=== PATIENT | male | born 1945 | race African-American/Black ===

== ENCOUNTER 2018-05-12 11:35 | Emergency (ER) | payer MEDICARE ==
[~2018-05-12] VITALS: Ht 180.3 cm; Wt 110.0 kg
[2018-05-12 12:00] VITALS: BP 144/95
== END 2018-05-12 12:16 | disposition left against medical advice (07) ==
LOC: ER 11:35
DX: Z53.21 Procedure and treatment not carried out due to patient leaving prior to being seen by health care provider (principal)

== ENCOUNTER 2024-03-19 12:41 | Emergency (ER) | payer MEDICARE ==
[~2024-03-19] VITALS: Ht 175.3 cm; Wt 88.0 kg
[2024-03-19 12:45] VITALS: PULSE 87; RESP 16; TEMP 97.9; O2SAT 98
[2024-03-19 13:39] VITALS: BP 142/86
== END 2024-03-19 14:49 | disposition home or self-care (01) ==
LOC: ER 12:44
DX: I10 Essential (primary) hypertension (principal); E11.9 Type 2 diabetes mellitus without complications
CPT/HCPCS: 99283